=== PATIENT | female | born 1955 | race Caucasian/White ===

== ENCOUNTER → 2021-02-17 16:54 | Outpatient (BNVA) | payer BC, SELFPAY | PROVIDERS: Family Provider Nurse Practitioner Family; PCP Nurse Practitioner Family; Visit Provider Nurse Practitioner Family | DX: R53.83 Other fatigue (principal); R53.1 Weakness; Z79.899 Other long term (current) drug therapy | CPT/HCPCS: 80053; 82306; 82607; 84443; 85025; 87635 ==

== ENCOUNTER 2021-02-25 13:32 | Emergency (ER) | payer BC, SELFPAY ==
[2021-02-25 13:47] VITALS: BP 118/73; PULSE 87; RESP 18; TEMP 36.8; O2SAT 97; BMI 23.0
--- NOTE | 2021-02-25 16:17 | XRR_ITS ---
PROCEDURE INFORMATION: Exam: XR Chest Exam date and time: 02/25/2021 4:17 PM Age: 65 years old Clinical indication: Pain; Other: Chest tightness TECHNIQUE: Imaging protocol: XR of the chest. Views: 1 view. COMPARISON: No relevant prior studies available. FINDINGS: Lungs: Small faint opacities in the medial right lung base may represent early pneumonia. The lungs are otherwise clear. Pleural spaces: Unremarkable. No pleural effusion. No pneumothorax. Heart/Mediastinum: Unremarkable. No cardiomegaly. Bones/joints: Unremarkable. XR/XR chest 1V portable [id number] IMPRESSION: Possible early right basilar pneumonia. Correlate clinically.
--- NOTE | 2021-02-25 16:18 | ECG_ITS ---
[facility] Test Date: 2021-02-25 Pat Name: Niki Romero Department: Room: Gender: Female Legal Entity Controller: : 1955 Requested By: Conor Damian Order Number: [id number] Mahamed MD: Prince Valencia M.D. Measurements Intervals [place] Rate: 76 P: 56 ND: 132 QRS: 67 QRSD: 89 T: 41 QT: 373 QTc: 419 Interpretive Statements SINUS RHYTHM No previous ECG available for comparison Electronically Signed On 02-25-2021 23:36:59 CDT by Prince Valencia M.D. [id number]
--- NOTE | 2021-02-25 16:19 | W.ED.COVID ---
Documented by User: TYLER Brennan 02/26/21 07:16 HPI - COVID General: Chief Complaint: COVID symptoms Stated Complaint: COVID POSITIVE Time Seen by Provider: 02/25/21 15:47 Triage information: No fever, cough or shortness of breath. Exposure to COVID + person last 14 days History of Present Illness: HPI Narrative: Patient is a 65-year-old female comes to the ED via EMS with chest tightness/shortness of breath. Patient tested positive for COVID-19 on February 17. She has not received any COVID-19 vaccinations. She has a past medical history of asthma. Patient symptoms started about 8 days ago. She saw her primary care physician back on February 17 because she was feeling weak, fatigued had chills and body aches. PCP did a PCR Covid test on her than and it was positive. She is says over the past couple days she was improving and getting better. Today she woke up with some chest tightness/shortness of breath, nausea and had an episode of emesis. She is also complaining of having achy back pain as well. Denies any a.m. abdominal pain, chest pain, nausea, bladder or bowel symptoms. COVID 19 common symptoms: positive chills, dyspnea (Shortness of breath/chest tightness) and body aches; negative fever(s), non-productive cough, productive cough, fatigue, headache(s), throat pain, nasal congestion, nausea, vomiting or diarrhea COVID 19 other sytmptoms: negative chest pain COVID Results: SARS-CoV-2 RNA (RT-PCR) Detected (NOT DETECTED) A 02/17/21 17:07 02/17/21 Review of Systems Const: Reports: chills, body aches and malaise; Denies: fever(s) or fatigue Eyes: Denies: change in vision or eye discomfort ENMT: Denies: throat pain, odynophagia, nasal discharge or nasal congestion Card: Denies: chest pain, palpitations, edema, swelling of feet/ankles, dyspnea on exertion or orthopnea Resp: Reports: dyspnea (Shortness of breath/chest tightness); Denies: productive cough or non-productive cough GI: Denies: abdominal pain, nausea, vomiting, diarrhea, constipation or hematochezia : Denies: flank pain, dysuria or hematuria Musc: Reports: back pain; Denies: neck pain or extremity swelling Skin/Breast: Denies: rash or new lesions Neuro: Denies: headache(s), numbness in extremities or weakness in extremities PFSH ED PFSH: Medical History Asthma Rosacea Family History Other Cancer Stroke Social History Smoking and tobacco status: never smoked Second hand smoke exposure: No Alcohol intake: never Lives independently: Yes Marital status: Current occupational status: retired History of recent travel: No Current gender identity: Female Special elaina needs: No Agree to transfusion: Yes Physical Exam Const: COMMON NORMALS: no acute distress, patient oriented x3 and alert GENERAL APPEARANCE: cooperative; not comfortable (Patient appears uncomfortable) HENMT: COMMON NORMALS: normocephalic HEAD & SCALP: normocephalic MOUTH: Normal oral and palatal mucosa present THROAT: posterior oropharynx normal and uvula midline Eye: COMMON NORMALS: Equal, round and reactive pupils present PUPIL: Yes Equal, round and reactive pupils present Neck/C-Spine: COMMON NORMALS: supple GENERAL: Yes normal visual inspection Resp: COMMON NORMALS: normal respiratory effort, No retractions and No use of accessory muscles EFFORT & INSPECTION: Yes able to speak in complete sentences, No tachypneic, No respiratory distress and No labored AUSCULTATION: crackles Laterality: right (Posterior lower lobe) OTHER: Patient has some light crackling in the posterior right lower lobe of the lung. Although her lung alarcon were clear to auscultation bilaterally. Cardio: COMMON NORMALS: regular rate, regular rhythm, S1 normal heart sound present, S2 normal heart sound present, No gallops present (Cardio), No clicks present (Cardio), No murmurs present (Cardio) and Peripheral pulses 2+ throughout RATE: regular rate RHYTHM: regular rhythm HEART SOUNDS: S1 normal heart sound present and S2 normal heart sound present PERIPHERAL PULSES: Peripheral pulses 2+ throughout GI: COMMON NORMALS: Normal to inspection, nondistended, normoactive bowel sounds present, Soft to palpation, non-tender and no masses PALPATION: Yes Soft to palpation : COMMON NORMALS: Yes no CVA tenderness BLADDER/KIDNEY EXAM: Yes no CVA tenderness Back/Pelvis: COMMON NORMALS: no CVA tenderness Extremity: COMMON NORMALS: normal to inspection Neuro: COMMON NORMALS: patient oriented x3 and moves all extremities SENSORIUM/ORIENTATION: Yes alert Skin: GENERAL SKIN EXAM: dry skin Course Vital Signs: Vital signs: Vital Signs Temperature 98.3 F 02/25/21 13:47 Pulse Rate 72 02/25/21 21:49 Respiratory Rate 18 02/25/21 21:49 Blood Pressure 115/62 02/25/21 21:49 Pulse Oximetry 93 02/25/21 21:49 MDM - COVID Lab Data: Labs: Lab Results 02/25/21 02/25/21 02/25/21 Range/Units 18:44 18:44 18:44 WBC 6.4 (4.0-10.0) 10^3/ uL RBC 4.44 (4.1-5.3) 10^6/u L Hgb 13.3 (11.5-15.3) g/dL Hct 40.3 (37.0-47.0) % MCV 90.8 (81-99) fL MCH 30.0 (28.0-34.0) pg MCHC 33.0 (30.0-36.0) g/dL RDW 12.8 (12.1-15.1) % Plt Count 252 (130-400) 10^3/c mm MPV 9.4 (7.4-10.4) fL Neut % (Auto) 61.2 % Lymph % (Auto) 23.6 % [place] % (Auto) 13.9 % Eos % (Auto) 0.9 % Baso % (Auto) 0.2 % Neut # (Auto) 3.91 (1.8-7.7) 10^3/u L Lymph # (Auto) 1.5 (0.8-4.8) 10^3/u L [place] # (Auto) 0.9 (0.2-0.9) 10^3/u L Eos # (Auto) 0.1 (0.0-0.8) 10^3/u L Baso # (Auto) 0.0 (0.0-0.1) 10^3/u L Nucleated RBC % (a uto) 0 % Nucleated RBCs # 0.0 /100WBC Sodium 139 (136-145) mmol/L Potassium 4.1 (3.5-5.1) mmol/L Chloride 103 (98-107) mmol/L Carbon Dioxide 24 (22-29) mmol/L Anion Gap 16.1 (5-19) BUN 10 (8-23) mg/dL Creatinine 0.5 (0.5-0.9) mg/dL GFR Calculation 123.8 (90-130) mL/min Glucose 91 (65-115) mg/dL Calculated Osmolal ity 287 (285-295) mOsm/k g Calcium 8.8 (8.5-10.5) mg/dL Ferritin 802 H (15-150) ng/mL Total Bilirubin 0.4 (0.15-1.2) mg/dL AST 28 (0-32) U/L ALT 14 (0-33) U/L Alkaline Phosphata se 64 (35-105) IU/L Troponin T Baselin e 6 (0-10) ng/L Total Protein 7.2 (6.6-8.7) g/dL Albumin 3.8 (3.5-5.2) g/dL Globulin 3.4 (1.3-4.6) g/dL COVID Results: SARS-CoV-2 RNA (RT-PCR) Detected (NOT DETECTED) A 02/17/21 17:07 02/17/21 Discharge Plan Discharge Patient Disposition: Home Clinical Impression: Pneumonia due to COVID-19 virus Condition: Stable Prescriptions: New dexamethasone 6 mg tablet 6 mg PO DAILY Qty: 5 RF: 0 No Action doxycycline hyclate 100 mg capsule 100 mg PO BID Qty: 20 RF: 0 cholecalciferol (vitamin D3) [Vitamin D3] 50 mcg (2,000 unit) tablet 100 mcg PO DAILY Qty: 60 RF: 5 Vitamin C 1,000 mg Tablet 1,000 mg PO DAILY RF: 0 zinc 50 mg Tablet 50 mg PO DAILY RF: 0 turmeric 400 mg Capsule 400 mg PO DAILY RF: 0 Discharge Orders: Discharge ED (Routine); Ordered 02/25/21 Ordered By: Vic Connors Discharge Diet: Usual diet Discharge Activity: Increase activity as tolerated Patient Instructions: Pneumonia (ED), Opioid Safety Activity Restrictions/Additional Instructions: Home and rest. Drink plenty of fluids. Be sure to consume at least 1-1/2 to 2 L of liquid a day. Use acetaminophen and ibuprofen for pain and discomfort. Continue with routine medications as prescribed. Use dexamethasone 1 tablet daily for the next 5 days. Use albuterol 2 puffs every 4 hours as needed for shortness of breath or difficulty breathing. Return to the emergency room for worsening symptoms or new concerns. Sign Out Sign Out Data: Patient Sign Out occurred on 02/25/21 at 17:26. Patient's care was discussed, and care was transferred from TYLER Brennan to Vic Connors. Sign Out Comment: Pt Covid+ on 02/17/21. She is having some chest tightness/SOB. Vitals stable and O2 sat 97% on RA. She has a history of Asthma. Labs pending and I talked to pt about BAM treatment and I think she is interested in getting infusion here in the ED. Thanks, Conor Damian PA-C Last updated by Conor Damian PA at 02/25/21 16:57 Coding Level of Care Code ED Facial Operator for Chg Fwd Exam Comprehensive Documented by User: NAJMA Samuel 02/25/21 20:01 HPI - COVID General: Chief Complaint: COVID symptoms Stated Complaint: COVID POSITIVE Time Seen by Provider: 02/25/21 15:47 COVID Results: SARS-CoV-2 RNA (RT-PCR) Detected (NOT DETECTED) A 02/17/21 17:07 02/17/21 [facility] ED PFSH: Medical History Asthma Rosacea Family History Other Cancer Stroke Social History Smoking and tobacco status: never smoked Second hand smoke exposure: No Alcohol intake: never Lives independently: Yes Marital status: Current occupational status: retired History of recent travel: No Current gender identity: Female Special elaina needs: No Agree to transfusion: Yes Course ED course: 1700, received patient from Conor Damian. Patient was diagnosed with COVID-19 on February 17, patient had worsening symptoms starting yesterday. Patient was started on doxycycline yesterday. Patient came in today to the increased shortness of breath and chest discomfort. We are awaiting labs and x-rays. Review of the x-ray notes a infiltrate to the right lower lung suggestive of pneumonia. Vital Signs: Vital signs: Vital Signs Temperature 98.3 F 02/25/21 13:47 Pulse Rate 72 02/25/21 21:49 Respiratory Rate 18 02/25/21 21:49 Blood Pressure 115/62 02/25/21 21:49 Pulse Oximetry 93 02/25/21 21:49 MDM - COVID MDM Narrative: Medical decision making narrative: Patient comes in today with complaints of some increased shortness of breath and difficulty breathing starting today. Patient was diagnosed with COVID-19 on 17 February. Patient was started on doxycycline yesterday for concerns of pneumonia. On exam patient has crackles in the right lower posterior lung. Vital signs are normal. Differential diagnosis includes pneumonia, respiratory failure, COVID-19. X-ray did note a infiltrate in the right lower lung. Vital signs were normal pulse oxygen stay as stated above 95% throughout hospital stay. CBC and CMP were unremarkable. Patient did have some elevation in the ferritin level. Plan is patient will continue with the doxycycline, will add dexamethasone 6 mg daily, and add an albuterol inhaler to help with shortness of breath. Patient was encouraged to drink plenty of fluids and follow-up or return to the ER for worsening symptoms. Lab Data: Labs: Lab Results 02/25/21 02/25/21 02/25/21 Range/Units 18:44 18:44 18:44 WBC 6.4 (4.0-10.0) 10^3/ uL RBC 4.44 (4.1-5.3) 10^6/u L Hgb 13.3 (11.5-15.3) g/dL Hct 40.3 (37.0-47.0) % MCV 90.8 (81-99) fL MCH 30.0 (28.0-34.0) pg MCHC 33.0 (30.0-36.0) g/dL RDW 12.8 (12.1-15.1) % Plt Count 252 (130-400) 10^3/c mm MPV 9.4 (7.4-10.4) fL Neut % (Auto) 61.2 % Lymph % (Auto) 23.6 % [place] % (Auto) 13.9 % Eos % (Auto) 0.9 % Baso % (Auto) 0.2 % Neut # (Auto) 3.91 (1.8-7.7) 10^3/u L Lymph # (Auto) 1.5 (0.8-4.8) 10^3/u L [place] # (Auto) 0.9 (0.2-0.9) 10^3/u L Eos # (Auto) 0.1 (0.0-0.8) 10^3/u L Baso # (Auto) 0.0 (0.0-0.1) 10^3/u L Nucleated RBC % (a uto) 0 % Nucleated RBCs # 0.0 /100WBC Sodium 139 (136-145) mmol/L Potassium 4.1 (3.5-5.1) mmol/L Chloride 103 (98-107) mmol/L Carbon Dioxide 24 (22-29) mmol/L Anion Gap 16.1 (5-19) BUN 10 (8-23) mg/dL Creatinine 0.5 (0.5-0.9) mg/dL GFR Calculation 123.8 (90-130) mL/min Glucose 91 (65-115) mg/dL Calculated Osmolal ity 287 (285-295) mOsm/k g Calcium 8.8 (8.5-10.5) mg/dL Ferritin 802 H (15-150) ng/mL Total Bilirubin 0.4 (0.15-1.2) mg/dL AST 28 (0-32) U/L ALT 14 (0-33) U/L Alkaline Phosphata se 64 (35-105) IU/L Troponin T Baselin e 6 (0-10) ng/L Total Protein 7.2 (6.6-8.7) g/dL Albumin 3.8 (3.5-5.2) g/dL Globulin 3.4 (1.3-4.6) g/dL EKG Data: EKG 1: Attestation: I personally reviewed and interpreted this EKG as follows: (1720, EKG shows a normal sinus rhythm, no ectopy or ST elevation is noted. Patient has a regular rate at 76 bpm. No prior exam is available for comparison at this time.) EKG 2: Attestation: I personally reviewed and interpreted this EKG as follows: (1905, EKG shows normal sinus rhythm with regular rate at [address] elevation and no ectopy is noted. No changes noted from prior exam 2 hours ago.) COVID Results: SARS-CoV-2 RNA (RT-PCR) Detected (NOT DETECTED) A 02/17/21 17:07 02/17/21 Discharge Plan Discharge Patient Disposition: Home Clinical Impression: Pneumonia due to COVID-19 virus Condition: Stable Prescriptions: New dexamethasone 6 mg tablet 6 mg PO DAILY Qty: 5 RF: 0 No Action doxycycline hyclate 100 mg capsule 100 mg PO BID Qty: 20 RF: 0 cholecalciferol (vitamin D3) [Vitamin D3] 50 mcg (2,000 unit) tablet 100 mcg PO DAILY Qty: 60 RF: 5 Vitamin C 1,000 mg Tablet 1,000 mg PO DAILY RF: 0 zinc 50 mg Tablet 50 mg PO DAILY RF: 0 turmeric 400 mg Capsule 400 mg PO DAILY RF: 0 Discharge Orders: Discharge ED (Routine); Ordered 02/25/21 Ordered By: Vic Connors Discharge Diet: Usual diet Discharge Activity: Increase activity as tolerated Patient Instructions: Pneumonia (ED), Opioid Safety Activity Restrictions/Additional Instructions: Home and rest. Drink plenty of fluids. Be sure to consume at least 1-1/2 to 2 L of liquid a day. Use acetaminophen and ibuprofen for pain and discomfort. Continue with routine medications as prescribed. Use dexamethasone 1 tablet daily for the next 5 days. Use albuterol 2 puffs every 4 hours as needed for shortness of breath or difficulty breathing. Return to the emergency room for worsening symptoms or new concerns. Sign Out Sign Out Data: Patient Sign Out occurred on 02/25/21 at 17:26. Patient's care was discussed, and care was transferred from TYLER Brennan to Vic Connors. Sign Out Comment: Pt Covid+ on 02/17/21. She is having some chest tightness/SOB. Vitals stable and O2 sat 97% on RA. She has a history of Asthma. Labs pending and I talked to pt about BAM treatment and I think she is interested in getting infusion here in the ED. Thanks, Conor Damian PA-C Last updated by Conor Damian PA at 02/25/21 16:57 Coding Level of Care Code ED Facial Operator for Delores Fwd Exam Comprehensive
--- NOTE | 2021-02-25 18:18 | ECG_ITS ---
[facility] Test Date: 2021-02-25 Pat Name: Niki Romero Department: Room: Gender: Female Hang Gliding Instructor: : 1955 Requested By: Conor Damian Order Number: [id number] Mahamed MD: Prince Valencia M.D. Measurements Intervals [place] Rate: 61 P: 59 DC: 168 QRS: 58 QRSD: 88 T: 40 QT: 397 QTc: 402 Interpretive Statements SINUS RHYTHM Compared to ECG 02/25/2021 17:16:25 No significant changes Electronically Signed On 02-25-2021 23:45:50 CDT by Prince Valencia M.D. [id number]
[2021-02-25 18:20] VITALS: BP 119/75; PULSE 88; RESP 18; O2SAT 96
[2021-02-25 18:53] LABS: Basophils % 0.2 %; Eosinophils # 0.1 10^3/uL (0.0-0.8); Eosinophils % 0.9 %; Hematocrit 40.3 % (37.0-47.0); Hemoglobin 13.3 g/dL (11.5-15.3); Lymphocytes # 1.5 10^3/uL (0.8-4.8); Lymphocytes % 23.6 %; Mean Corpuscular Volume 90.8 fL (81-99); Mean Platelet Volume 9.4 fL (7.4-10.4); Monocytes # 0.9 10^3/uL (0.2-0.9); Monocytes % 13.9 %; Neutrophils # 3.91 10^3/uL (1.8-7.7); Neutrophils % 61.2 %; Nucleated Red Blood Cells % 0 %; Platelet Count 252 10^3/cmm (130-400); Red Blood Count 4.44 10^6/uL (4.1-5.3); Red Cell Distribution Width 12.8 % (12.1-15.1); White Blood Count 6.4 10^3/uL (4.0-10.0)
[2021-02-25] MEDS: dexamethasone 4 mg Tablet 10 MG PO (19:20)
[2021-02-25 19:21] LABS: Alanine Aminotransferase 14 U/L (0-33); Albumin Level 3.8 g/dL (3.5-5.2); Alkaline Phosphatase 64 IU/L (35-105); Anion Gap 16.1 (5-19); Aspartate Amino Transferase 28 U/L (0-32); Blood Urea Nitrogen 10 mg/dL (8-23); Calcium 8.8 mg/dL (8.5-10.5); Carbon Dioxide 24 mmol/L (22-29); Chloride 103 mmol/L (98-107); Creatinine Clr Calc Pharmacy 60.9021; Globulin 3.4 g/dL (1.3-4.6); Glomerular Filtration Rate 123.8 mL/min (90-130); Glucose 91 mg/dL (65-115); Osmolality Calculated 287 mOsm/kg (285-295); Potassium 4.1 mmol/L (3.5-5.1); Sodium 139 mmol/L (136-145); Total Bilirubin 0.4 mg/dL (0.15-1.2); Total Protein 7.2 g/dL (6.6-8.7)
[2021-02-25 19:27] VITALS: BP 112/67; PULSE 87; RESP 18; O2SAT 98
[2021-02-25 19:43] LABS: Ferritin 802 ng/mL (15-150)
[2021-02-25 19:44] LABS: Troponin(5th) Baseline 6 ng/L (0-10)
[2021-02-25 20:36] VITALS: PULSE 73; RESP 16; O2SAT 79
[2021-02-25 20:38] VITALS: PULSE 77
[2021-02-25 21:49] VITALS: BP 115/62; PULSE 72; RESP 18; O2SAT 93
--- NOTE | 2021-02-26 10:24 | DCPLANNER ---
Addendum entered by Angela Guevara 03/05/21 13:23: Patient did not get infusion. Original Note: hotel recreational facilities manager had message to fax an order for the monoclonal antibody infusion to centralized scheduling. hotel recreational facilities manager faxed the order to centralized scheduling.
== END 2021-02-25 21:49 | disposition home or self-care (01) ==
PROVIDERS: Physician Assistant; Emergency Provider Nurse Practitioner Family
DX: U07.1 COVID-19 (principal); J12.82 Pneumonia due to coronavirus disease 2019
CPT/HCPCS: 71045; 80053; 82728; 84484; 85025; 93005; 94640; 99284; J3535; J8540

== ENCOUNTER → 2021-11-03 13:13 | Outpatient (BNVA) | payer BC, SELFPAY | PROVIDERS: PCP Nurse Practitioner Family; Visit Provider Nurse Practitioner Family | DX: J45.909 Unspecified asthma, uncomplicated (principal); L03.90 Cellulitis, unspecified; R53.83 Other fatigue | CPT/HCPCS: 80053; 85025 ==

== ENCOUNTER → 2022-07-11 11:48 | Outpatient (BNVA) | payer BC, SELFPAY | PROVIDERS: PCP Nurse Practitioner Family; Visit Provider Nurse Practitioner Family | DX: R07.89 Other chest pain (principal); R06.00 Dyspnea, unspecified; R05.9 Cough, unspecified | CPT/HCPCS: 71046; 80053; 82306; 83036; 85025; 85379 ==

== ENCOUNTER → 2022-12-22 10:39 | Outpatient (BNVA) | payer BC, SELFPAY | PROVIDERS: PCP Nurse Practitioner Family; Visit Provider Nurse Practitioner Family | DX: S59.912A Unspecified injury of left forearm, initial encounter (principal); X58.XXXA Exposure to other specified factors, initial encounter | CPT/HCPCS: 73090 ==